=== PATIENT | male | born 1960 | race Caucasian/White ===

== ENCOUNTER 2023-05-18 06:24 | Day surgery (SDC) | payer OTHER, SELFPAY ==
[2023-05-18] VITALS (10 sets, daily range): BP systolic 125–179; BP diastolic 81–93; PULSE 74–90; RESP 11–21; TEMP 36.3–36.8; O2SAT 94–99; BMI 36.4
[2023-05-18] MEDS: Heparin 5,000 UNITS/ML VIAL 5000 UNITS SC (07:25)
[2023-05-18] MEDS: Lactated Ringers 1,000 ML 80 ML IV (07:25)
--- NOTE | 2023-05-18 07:36 | W.ANESPRE ---
General Info Date of Service Date Performed: 05/18/23 Height: 6 ft 2 in Weight: 128.7 kg Body Mass Index (BMI): 36.4 Surgical Procedure: Operation Date: 05/18/23 07:40 Proposed Procedure Side Surgeon p Hernia Umbilical Laparoscopic Rakesh Neely MD Meds Allergies and Home Medications Allergies Allergy/AdvReac Type Severity Reaction Status Date / Time No Known Allergies Allergy Verified 05/18/23 06:33 Home Medication Medication Instructions Recorded ascorbate calcium (vitamin C) 500 500 mg PO DAILY 04/16/23 mg tablet calcium carbonate 600 mg-vitamin 1 tab PO DAILY 04/16/23 D3 20 mcg (800 unit) tablet (Caltrate with Vitamin D3) garlic 100 mg tablet 100 mg PO DAILY 04/16/23 multivit with minerals-iron 18 1 tab PO DAILY 04/16/23 mg-folic ac 400 mcg-vit K 25 mcg tablet (Central-Dominic) omega 7-yqq-cst-fish oil 1,200 mg 1 cap PO DAILY 04/16/23 (144 mg-216 mg) capsule (Fish Oil) Current Visit Medications: Current Medications Generic Name Dose Route Start Last Admin Trade Name Freq PRN Reason Stop Dose Admin Heparin Sodium (Porcine) 5,000 units 05/18/23 06:00 05/18/23 07:25 Heparin 5,000 Units/Ml Vial SC 05/18/23 23:59 5,000 units PREOP HARJEET Administration Ringer's Solution 1,000 mls @ 80 mls/hr 05/18/23 06:00 05/18/23 07:25 IV 05/18/23 23:59 80 mls/hr INFUSION HARJEET Administration Cefazolin Sodium/Dextrose 2 gm in 50 mls @ 100 mls/hr 05/18/23 06:00 Ancef Duplex IVPB 05/18/23 23:59 PREOP HARJEET IV Miscellaneous Supplies 1 each 05/18/23 06:00 Iv Access IV 05/18/23 23:59 DIRECTED HARJEET Sodium Chloride 0 ml 05/18/23 06:00 Normal Saline Flush 10 Ml Syr IV 05/18/23 23:59 PRN PRN Sodium Chloride 0 ml 05/18/23 06:00 Normal Saline 10 Ml Vial IJ 05/18/23 23:59 DIRECTED PRN Sterile Water 0 ml 05/18/23 06:00 Water,Injection,Sterile 10 Ml Vial IJ 05/18/23 23:59 DIRECTED PRN PFSH Active Problems Active Problems: Problem Status Onset Code Umbilical hernia K42.9 Medical History Medical History (Updated 05/17/23 @ 08:32 by Nnamdi Baker) Anesthesia Hx of difficult airway: Pt. states he was previously told, had a small mouth, big neck, tiny airway, stated he was told by the doctor if he was tubed when he was completely knocked out it could kill him Chest pain Pt. state muscle related not cardiac in nature. Stated had full work up. Sleep apnea Pt. denies Acute sinusitis Obesity (BMI 30.0-34.9) Hyperlipidemia Elevated blood pressure reading with diagnosis of hypertension Fatty liver Liver mass Medical History Comments:: See note: stated he was told by the doctor if he was had a small mouth, big neck, tiny airway, tubed when he was completely knocked out it could kill him Surgical History Surgical History (Updated 05/17/23 @ 08:32 by Nnamdi Baker) Hx of colonoscopy Hx of tonsillectomy (~1969) History of cholecystectomy (~02/2019) laparoscopic 02/2019 Tobacco Smoking/Tobacco Use Status: Former Tobacco Use Alcohol Alcohol Intake: current Alcohol intake frequency: 0-2 drinks per day Alcohol type: beer Substance Use Substance use: Never Substance use type: does not use Vital Signs and Lab Results Vital Signs Most Recent Vital Signs in EMR: Most Recent Vital Signs Temp Pulse Resp BP Pulse Ox 36.3 C L 90 16 179/93 H 99 05/18/23 06:22 05/18/23 06:22 05/18/23 06:22 05/18/23 06:22 05/18/23 06:22 Lab Results Blood Type / Crossmatch: No Data to Display Complete Blood Count: No Data to Display Complete Metabolic Panel: No Data to Display Liver Function Panel: No Data to Display Coagulation Panel: No Data to Display Cardiac Panel: No Data to Display Arterial Blood Gas: No Data to Display Venous Blood Gas: No Data to Display Pancreas Panel: No Data to Display Thyroid Panel: No Data to Display Infectious Disease: No Data to Display Blood Cultures: No Data to Display Toxicology Panel: No Data to Display Anesthesia Assessment and Plan Anesthesia History Personal History: No History of Anesthesia Complications and Other (history of difficult airway ) Family History: No Family History of Anesthesia Complications Exercise Tolerance Exercise Tolerance: Metabolic Equivalents>4 Pertinent Negatives Pertinent Negatives: No Symptoms of GERD, No Major Cardiovascular Symptoms or Complaints, No Major Pulmonary Symptoms or Complaints and No History of CVA/TIA Cardiac & Pulmonary Exam Cardiac Exam: Heart Murmur Present (noted previously, negative stress test, good activity tolerance) Pulmonary Exam: Clear Bilateral Breath Sounds Implantable Cardiac Device Does patient have a Pacemaker or an ICD?: No Airway Exam Known Difficult Airway: Yes Mallampati Class: 4 Mouth Opening: Narrow (< 3cm) Thyromental Distance: Less than 3 cm Facial Hair: Full Dunlap Neck Range of Motion: Limited ROM Neck Circumference: Thick Teeth Condition: Normal Dentition ASA Classification ASA Score: ASA 3 Emergency Case?: No NPO Status NPO Status: NPO Clears >2 hours, Solids >8 hours Anesthesia Plan Resuscitation Status: Full Code Anesthesia Technique: General Anesthesia Airway Planned: Endotracheal Tube Monitors Used: Standard Monitors and SedLine Preoperative Comments:: Fiber optic airway equipment in room.
--- NOTE | 2023-05-18 07:42 | W.SURGCON ---
Date of service: 05/18/23 Time of Service: 07:42 Assessment and Plan Assessment and plan (1) Umbilical hernia: Status: Acute Assessment and plan: 62-year-old man with a ventral hernia. He has a BMI of 36 warranting a minimally invasive hernia repair. Plan: Laparoscopic ventral hernia repair History of Present Illness Narrative: Patient is here today for his elective ventral hernia repair. There are no changes in his symptoms. He had some right groin discomfort over the last month or so but that has since resolved. PFSH All Active Problems (Updated 05/17/23 @ 08:32 by Nnamdi Baker) Umbilical hernia (Acute) Medical History (Updated 05/17/23 @ 08:32 by Nnamdi Baker) Anesthesia Hx of difficult airway: Pt. states he was previously told, had a small mouth, big neck, tiny airway, stated he was told by the doctor if he was tubed when he was completely knocked out it could kill him Chest pain Pt. state muscle related not cardiac in nature. Stated had full work up. Sleep apnea Pt. denies Acute sinusitis Obesity (BMI 30.0-34.9) Hyperlipidemia Elevated blood pressure reading with diagnosis of hypertension Fatty liver Liver mass Surgical History (Updated 05/17/23 @ 08:32 by Nnamdi Baker) Hx of colonoscopy Hx of tonsillectomy (~1969) History of cholecystectomy (~02/2019) laparoscopic 02/2019 Social History Smoking/Tobacco Use Status: Former Tobacco Use Quit Date: 03/19/19 Smoking risk assessment performed?: Yes Alcohol Intake: current Alcohol Intake frequency: 0-2 drinks per day Alcohol type: beer Drug use: Never Substance use type: does not use Housing: house Current gender identity: male Do you feel safe at home: Yes Do you feel safe in your relationship?: Yes Exam Narrative Exam Narrative: General: Nontoxic, comfortable and interactive Neuro: Alert and oriented x 3 Psych: Good mood and affect, good insight and understanding into his condition Chest: Nonlabored breathing Heart: Regular Abdomen: Soft, nondistended and nontender Results Last Vital Signs Temp 97.3 F L 05/18/23 06:22 Pulse 90 05/18/23 06:22 Resp 16 05/18/23 06:22 BP 179/93 H 05/18/23 06:22 Pulse Ox 99 05/18/23 06:22
[2023-05-18] MEDS: ceFAZolin 2 GM/50 ML BAG IVPB (08:02)
[2023-05-18] MEDS: Lidocaine 1% Pres-Free 30 ML VIAL (08:39)
[2023-05-18] MEDS: fentaNYL 100 MCG/2 ML VIAL IVP ×2 (09:25→09:38)
--- NOTE | 2023-05-18 09:50 | W.ANESPOSTOP ---
Postoperative Evaluation Date, Time and Location Date Performed: 05/18/23 Time Performed: 09:50 Patient Location: PACU Vital Signs Most Recent Imported Vital Signs: Most Recent Vital Signs Temp Pulse Resp BP Pulse Ox 36.8 C 80 11 L 138/93 H 94 05/18/23 09:45 05/18/23 09:45 05/18/23 09:45 05/18/23 09:45 05/18/23 09:45 Pain Score Most Recent Pain Score: Most Recent Pain Score Pain Level 5 05/18/23 09:45 Assessment Mental Status: Awake (Alert & Oriented to Patient Baseline) Airway and Respiratory Function: Patent airway with normal (patient baseline) respiratory exam Cardiovascular Function: Hemodynamically Stable Hydration Status: Adequately Hydrated Nausea & Vomiting: No Nausea or Vomiting Pain: Pain is tolerable per patient Peripheral Nerve Block: Patient did not receive a nerve block
--- NOTE | 2023-05-18 09:59 | ROE_ITS ---
Date of service: 05/18/23 Time of Service: 09:30 Operative Note Operative Note Refer to Anesthesia Record Procedure Description: Procedures: 1. Laparoscopic ventral hernia repair of primary, Incarcerated ventral(umbilical) hernia with prosthetic ECHO mesh Preoperative Diagnosis: Primary Incarcerated umbilical ventral hernia Postoperative Diagnosis: Same Surgeon: Janay Neely Anesthesia: General Anesthesiologist: Chasidy Indication: Patient with elevated BMI who has a symptomatic, incarecerated umbilical hernia. Findings: Incarcerated omentum. Hernia sac excised. Fascia exposed. The defect was repaired primarily with permanent suture and buttressed with a 6 ventralight mesh. Complications: None Estimated Blood Loss: Minimal Urine Output: Not recorded Specimens removed: None Grafts or implants: Mesh Procedure in detail: Written consent was obtained from the patient who was in agreement the risks the benefits and indications for the procedure. The patient was taken to the operating suite and laid supine on the operating table. Preoperative antibiotic prophylaxis was given. Venodynes were in place. Heparin subcutaneous was verified to have been given. General anesthesia was administered which was tolerated very well and he was intubated in usual fashion without any difficulty or complication. Next we prepped and draped the abdomen in sterile fashion. A timeout was performed. When we were all in agreement we began the procedure. Just below the patient's left costal margin local anesthetic was injected and a 5 mm trocar was placed using Optiview technique. There were no significant intra-abdominal adhesions. The hernia was clearly visualized with a tongue of omentum incarcerated within it. 2 more trochars were then placed under direct visualization. I used a LigaSure to divide the omentum and thus reduce it out of the hernia. Next I was able to open the peritoneum circumferentially around the hernia essentially dividing/isolating the hernia sac. This exposed clean fascia circumferentially. Using a Rick Devon I passed Vicryl suture and closed the defect primarily. A 12 mm port was used to facilitate passing the mesh into the abdomen. The Echo- positioning Ventralight mesh was placed and fixated in good location in standard technique. A laparoscopic absorbable tacking device was used to fixate the mesh in place. It laid nicely after tacking with no tension anywhere. The Echo mesh removable parts were extracted thru the 12 port. Hemostasis was excellent. I removed the 5 mm ports. I closed the 12mm port with Vicryl through the fascia. I closed the skin with a running Monocryl. Dermabond was placed on the skin incisions. The sponge, instrument and sharps count was correct x3 at the end of the procedure. The patient tolerated the procedure well, was extubated and was taken to the PACU in hemodynamically stable condition.
--- NOTE | 2023-05-18 10:00 | W.PM.DSUDISC ---
Date of service: 05/18/23 Time of Service: 10:00 Discharge Plan Disposition Patient Disposition: Home Condition: Good Discharge Details Attending Provider: Rakesh Neely Primary Care Provider: Slade Alex Home Meds and New Rx's Prescriptions: No Action calcium carbonate-vitamin D3 [Caltrate with Vitamin D3] 600 mg-20 mcg (800 unit) tablet 1 tab PO DAILY Central-Dominic 18 mg iron-400 mcg-25 mcg tablet 1 tab PO DAILY omega 3-zul-jzz-fish oil [Fish Oil] 1,200 (144-216) mg capsule 1 cap PO DAILY ascorbate calcium (vitamin C) 500 mg tablet 500 mg PO DAILY garlic 100 mg tablet 100 mg PO DAILY Discharge Instructions Additional Instructions: Incisions: Keep clean and dry but they do not need to be covered. It is okay to shower but no tub bathing for 1 week. You can peel the glue off after 1 week. Activity: As tolerated. No heavy lifting, no strenuous activity, use abdominal binder when up and about. Return to work, as tolerated in the next few days. If you need a work note call the surgery office. Diet: Regular diet as tolerated Medications: Resume all of your usual/regular home medications Follow-up: Follow-up is optional. If you are having any issues or concerns call the surgery office immediately. If you want to have a routine follow-up that is perfectly fine and you can call and schedule an. If everything is otherwise going well, you do not need to follow-up. Pain control: Take Tylenol, 1000 mg, every 6 hours on a schedule for the next 3 days. You can use ibuprofen in addition to Tylenol and use the narcotic medication only as necessary for pain preventing you from sleeping. Overall: Symptoms should not be worsening. If you have any difficulty breathing or you have return of symptoms of brought you to the hospital or your pain is otherwise worsening each day and you should call the doctor's office or come into the hospital to be checked out. Activity:: No heavy lifting, use abdominal binder Diet:: As Tolerated Discharge Orders Discharge Orders: Discharge Order (Routine); Ordered 05/18/23 Ordered By: Rakesh Neely DS: Diagnosis Discharge Diagnosis (1) Umbilical hernia: Status: Acute Asessment and Plan: Discharge home on a regular diet, light duty activity with no heavy lifting or strenuous activity and using abdominal binder when up for the next 8 weeks.
[2023-05-18] MEDS: oxyCODONE 5 MG TAB PO (11:09)
== END 2023-05-18 11:50 | disposition home or self-care (01) ==
PROVIDERS: PCP Nurse Practitioner Family; Visit Provider Student in an Organized Health Care Education/Training Program
PROC: (CPT 49650; principal; 2023-05-18 07:30)
DX: K42.0 Umbilical hernia with obstruction, without gangrene (principal); K76.0 Fatty (change of) liver, not elsewhere classified; E78.5 Hyperlipidemia, unspecified; E66.9 Obesity, unspecified; Z68.36 Body mass index [BMI] 36.0-36.9, adult
CPT/HCPCS: 49594; 00123; C1781; J0131; J0690; J1100; J1644; J1885; J2371; J2405; J2704; J3010